=== PATIENT | male | born 1945 | race Caucasian/White ===

== ENCOUNTER 2017-12-11 11:55 | Outpatient (CLI) | payer MEDICARE, OTHER ==
[2017-12-11] MEDS ORDERED: ISOVUE-370 76%-LOCM 1 ML ONE (13:28)
== END 2017-12-11 11:56 | disposition home or self-care (01) ==
LOC: BICCT 11:55
PROVIDERS: ATTEND Student in an Organized Health Care Education/Training Program
DX: R42 Dizziness and giddiness (principal); H53.9 Unspecified visual disturbance; I65.1 Occlusion and stenosis of basilar artery; I66.9 Occlusion and stenosis of unspecified cerebral artery
CPT/HCPCS: 70496; 70498

== ENCOUNTER 2022-01-08 19:43 | Inpatient (IN) | payer MEDICARE, OTHER ==
[2022-01-08] MEDS ORDERED: Furosemide 40 MG/4 ML VIAL ONE (19:58)
[2022-01-08] MEDS ORDERED: Nitroglycerin 2% Ointment 1 INCH/1 GM Packet ONE (19:58)
[2022-01-08 20:12] LABS: #Basophils 0.1 thou/uL (0.0-0.2); #Lymphocytes 1.1 thou/uL (1.20-3.40); #Monocytes 0.6 thou/uL (0.11-0.59); #Neutrophils 6.6 thou/uL (1.40-6.50); %Basophils 0.7 % (0.0-1.0); %Eosinophils 0.3 % (0.0-10.0); %Lymphocytes 12.7 % (21.0-51.0); %Neutrophils 79.2 % (42.0-75.0); Hemoglobin 14.6 g/dL (14.0-18.0); Mean Corpuscular HGB CONC 33.9 g/dL (32.0-36.0); Mean Corpuscular Hemoglobin 31.4 pg (27.0-31.0); Mean Corpuscular Volume 92.5 fL (78.0-98.0); Mean Platelet Volume 7.1 fL (7.4-10.4); Platelet Count 306 thou/uL (130-400); Red Blood Cell (RBC) Count 4.66 mill/uL (4.70-6.10); White Blood Cell (WBC) Count 8.4 thou/uL (4.8-10.8)
[2022-01-08 20:31] LABS: Chloride 105 mmol/L (98-107); Potassium 3.1 mmol/L (3.5-5.1); Sodium 143 mmol/L (136-145)
[2022-01-08 20:50] LABS: CKMB 3.1 ng/mL (0-6.6)
[2022-01-08 21:06] LABS: AST (SGOT) 21 U/L (5-34); Bilirubin, Total 0.6 mg/dL (0.2-1.2); Calcium 8.7 mg/dL (7.8-10.44)
[2022-01-08 21:17] LABS: Anion Gap 16 mmol/L (10-20); Carbon Dioxide 25 mmol/L (23-31)
[2022-01-08 21:20] LABS: Bacteria/HPF None Seen HPF (None Seen); Bilirubin Negative (Negative); Blood, Urine Negative (Negative); Clarity Clear (Clear); Glucose, Urine (Dipstick) Normal (Negative); Ketone, Urine Negative (Negative); Leukocyte Negative Leu/uL (Negative); Nitrite Negative (Negative); Protein, Urine (Dipstick) 100 mg/dL (Neg-Trace); RBC/HPF 0-3 HPF (0-3); Specific Gravity, Urine 1.011 (1.002-1.036); Sperm/HPF 3+ HPF (None Seen); Squamous Epithelial None Seen HPF (0-3); Urobilinogen Normal mg/dL (Less than 2); WBC/HPF 0-3 HPF (0-3)
[2022-01-08 21:28] LABS: Albumin 3.8 g/dL (3.4-4.8)
[2022-01-08 21:31] LABS: Globulin 2.3 g/dL (2.4-3.5); Glucose 133 mg/dL (83-110); Protein, Total 6.1 g/dL (5.8-8.1)
[2022-01-08 21:34] LABS: Alkaline Phosphatase 53 U/L (40-110); Calc. Creatinine Clearance 0 mL/min (70-130)
[2022-01-08 21:35] LABS: BUN (Urea Nitrogen) 24 mg/dL (8.4-25.7)
[2022-01-08 21:37] LABS: ALT (SGPT) 21 U/L (8-55)
[2022-01-08] MEDS ORDERED: Potassium Chloride 20 MEQ TAB ONE (21:47)
[2022-01-08] MEDS ORDERED: Aspirin 325 MG TAB ONE (21:47)
[2022-01-08 23:56] VITALS: BMI 39.5
[2022-01-09 00:20] LABS: Troponin I 0.082 ng/mL (< 0.028)
[2022-01-09] MEDS ORDERED: Dextrose 5% in Water 1,000 ML IV PRN (00:39)
[2022-01-09] MEDS ORDERED: Acetaminophen 650 MG Suppository PR PRN (00:39)
[2022-01-09] MEDS ORDERED: Ondansetron PF 4 MG/2 ML Vial IVP PRN (00:39)
[2022-01-09] MEDS ORDERED: Ondansetron ODT 4 MG TAB PO PRN (00:39)
[2022-01-09] MEDS ORDERED: Acetaminophen 325 MG TAB PO PRN (00:39)
[2022-01-09] MEDS ORDERED: Dextrose 50% Abboject 50 ML SYRINGE SLOW IVP PRN (00:39)
[2022-01-09] MEDS ORDERED: HumaLOG 300 UNITS/3 ML VIAL SC PRN (00:39)
[2022-01-09] MEDS ORDERED: Amlodipine 10 MG TAB PO SCH (01:30)
[2022-01-09 02:41] LABS: Troponin I 0.058 ng/mL (< 0.028)
[2022-01-09 04:35] LABS: #Eosinphils 0.1 thou/uL (0.0-0.7); #Lymphocytes 1.5 thou/uL (1.20-3.40); #Monocytes 0.8 thou/uL (0.11-0.59); %Basophils 0.7 % (0.0-1.0); %Eosinophils 1.6 % (0.0-10.0); %Lymphocytes 20.1 % (21.0-51.0); %Monocytes 11.1 % (0.0-10.0); %Neutrophils 66.5 % (42.0-75.0); Hemoglobin 14.6 g/dL (14.0-18.0); Mean Corpuscular HGB CONC 35.1 g/dL (32.0-36.0); Mean Corpuscular Hemoglobin 32.9 pg (27.0-31.0); Mean Corpuscular Volume 93.8 fL (78.0-98.0); Mean Platelet Volume 7.4 fL (7.4-10.4); Platelet Count 272 thou/uL (130-400); RBC Distribution Width 12.1 % (11.5-14.5); Red Blood Cell (RBC) Count 4.45 mill/uL (4.70-6.10); White Blood Cell (WBC) Count 7.6 thou/uL (4.8-10.8)
[2022-01-09 05:11] LABS: Anion Gap 10 mmol/L (10-20); BUN (Urea Nitrogen) 26 mg/dL (8.4-25.7); Calc. Creatinine Clearance 66 mL/min (70-130); Calcium 8.7 mg/dL (7.8-10.44); Carbon Dioxide 31 mmol/L (23-31); Chloride 104 mmol/L (98-107); Glucose 203 mg/dL (83-110); Potassium 3.1 mmol/L (3.5-5.1); Sodium 142 mmol/L (136-145)
[2022-01-09] MEDS: hydrALAZINE 20 MG/ML VIAL SLOW IVP PRN ×3 (06:07→21:15)
[2022-01-09] MEDS: Potassium Chloride 20 MEQ TAB PO SCH ×2 (07:45→09:13)
[2022-01-09] MEDS ORDERED: Furosemide 40 MG/4 ML VIAL SLOW IVP SCH ×2 (09:00)
[2022-01-09] MEDS: Enoxaparin Sodium 40 MG/0.4 ML SYRINGE SC SCH (09:12)
[2022-01-09] MEDS: Aspirin 81 mg Enteric Coated Tablet PO SCH (09:12)
[2022-01-09 13:44] LABS: SARS-CoV-2 PCR by NAA Not Detected (NotDetected)
[2022-01-09] MEDS ORDERED: hydrALAZINE 10 MG TAB PO SCH (15:00)
[2022-01-09] MEDS: hydrALAZINE 25 MG TAB PO SCH (21:10)
[2022-01-09] MEDS: Zolpidem Tartrate 5 MG TAB PO SCH (21:10)
[2022-01-09] MEDS: Rosuvastatin 20 MG TAB PO SCH (21:10)
[2022-01-10] MEDS: hydrALAZINE 20 MG/ML VIAL SLOW IVP PRN ×2 (01:13→06:31)
[2022-01-10] MEDS ORDERED: cloNIDine 0.1 MG TAB PO SCH (02:00)
[2022-01-10] MEDS: Furosemide 40 MG/4 ML VIAL SLOW IVP SCH ×2 (06:25→11:41)
[2022-01-10 06:57] LABS: #Basophils 0.1 thou/uL (0.0-0.2); #Eosinphils 0.1 thou/uL (0.0-0.7); #Lymphocytes 1.3 thou/uL (1.20-3.40); #Monocytes 0.7 thou/uL (0.11-0.59); #Neutrophils 6.4 thou/uL (1.40-6.50); %Basophils 0.7 % (0.0-1.0); %Eosinophils 1.5 % (0.0-10.0); %Lymphocytes 14.7 % (21.0-51.0); %Monocytes 8.6 % (0.0-10.0); %Neutrophils 74.4 % (42.0-75.0); Hemoglobin 14.3 g/dL (14.0-18.0); Mean Corpuscular HGB CONC 32.8 g/dL (32.0-36.0); Mean Corpuscular Hemoglobin 30.6 pg (27.0-31.0); Mean Corpuscular Volume 93.3 fL (78.0-98.0); Mean Platelet Volume 7.3 fL (7.4-10.4); Platelet Count 281 thou/uL (130-400); Red Blood Cell (RBC) Count 4.69 mill/uL (4.70-6.10); White Blood Cell (WBC) Count 8.6 thou/uL (4.8-10.8)
[2022-01-10 07:17] LABS: Anion Gap 12 mmol/L (10-20); BUN (Urea Nitrogen) 17 mg/dL (8.4-25.7); Calc. Creatinine Clearance 81 mL/min (70-130); Calcium 8.7 mg/dL (7.8-10.44); Carbon Dioxide 28 mmol/L (23-31); Chloride 105 mmol/L (98-107); Glucose 139 mg/dL (83-110); Magnesium 1.8 mg/dL (1.6-2.6); Potassium 3.5 mmol/L (3.5-5.1); Sodium 141 mmol/L (136-145)
[2022-01-10] MEDS ORDERED: Spironolactone 25 MG TAB PO SCH ×2 (08:00→13:00)
[2022-01-10] MEDS: hydrALAZINE 25 MG TAB PO SCH ×3 (09:40→20:26)
[2022-01-10] MEDS: Lisinopril 20 MG TAB PO SCH (09:41)
[2022-01-10] MEDS: Empagliflozin 10 MG TAB PO SCH (09:41)
[2022-01-10] MEDS: Amlodipine 10 MG TAB PO SCH (09:41)
[2022-01-10] MEDS: Aspirin 81 mg Enteric Coated Tablet PO SCH (09:41)
[2022-01-10] MEDS: Enoxaparin Sodium 40 MG/0.4 ML SYRINGE SC SCH (09:42)
[2022-01-10] MEDS: Minoxidil 10 MG TAB PO SCH (09:42)
[2022-01-10] MEDS: Lantus 1000 UNITS/10 ML VIAL SC SCH (15:22)
[2022-01-10] MEDS: Rosuvastatin 20 MG TAB PO SCH (20:27)
[2022-01-10] MEDS: Zolpidem Tartrate 5 MG TAB PO SCH (20:27)
[2022-01-11] MEDS: hydrALAZINE 20 MG/ML VIAL SLOW IVP PRN (03:53)
[2022-01-11 04:48] LABS: Anion Gap 15 mmol/L (10-20); BUN (Urea Nitrogen) 21 mg/dL (8.4-25.7); Calc. Creatinine Clearance 65 mL/min (70-130); Calcium 9.2 mg/dL (7.8-10.44); Carbon Dioxide 29 mmol/L (23-31); Chloride 102 mmol/L (98-107); Sodium 143 mmol/L (136-145)
[2022-01-11 05:00] LABS: Glucose 56 mg/dL (83-110); Potassium 2.9 mmol/L (3.5-5.1)
[2022-01-11] MEDS ORDERED: Electrolyte Replacement Protocol 1 EACH FS PRN (05:55)
[2022-01-11] MEDS ORDERED: Magnesium 2 GM/50 ML 2 GM in Premix Bag 1 BAG IVPB SCH (06:00)
[2022-01-11] MEDS: Furosemide 40 MG/4 ML VIAL SLOW IVP SCH (06:37)
[2022-01-11] MEDS: Potassium Chloride 20 MEQ TAB PO SCH ×2 (06:37→12:55)
[2022-01-11] MEDS ORDERED: Spironolactone 25 MG TAB PO SCH (08:00)
[2022-01-11] MEDS: Enoxaparin Sodium 40 MG/0.4 ML SYRINGE SC SCH (09:48)
[2022-01-11] MEDS: hydrALAZINE 25 MG TAB PO SCH ×3 (09:49→22:44)
[2022-01-11] MEDS: Empagliflozin 10 MG TAB PO SCH (09:49)
[2022-01-11] MEDS: Minoxidil 10 MG TAB PO SCH (09:49)
[2022-01-11] MEDS: Lisinopril 20 MG TAB PO SCH (09:51)
[2022-01-11] MEDS: Amlodipine 10 MG TAB PO SCH (09:51)
[2022-01-11] MEDS: Aspirin 81 mg Enteric Coated Tablet PO SCH (09:52)
[2022-01-11] MEDS: Lantus 1000 UNITS/10 ML VIAL SC SCH ×2 (09:52→23:03)
[2022-01-11] MEDS: Spironolactone 25 MG TAB PO SCH (09:52)
[2022-01-11 20:40] LABS: Albumin 3.8 g/dL (3.4-4.8); Anion Gap 14 mmol/L (10-20); BUN (Urea Nitrogen) 23 mg/dL (8.4-25.7); BUN/Creatinine Ratio 12.92; Calc. Creatinine Clearance 54 mL/min (70-130); Carbon Dioxide 27 mmol/L (23-31); Chloride 102 mmol/L (98-107); Glucose 217 mg/dL (83-110); Phosphorus 2.7 mg/dL (2.3-4.7); Sodium 139 mmol/L (136-145)
[2022-01-11] MEDS: Zolpidem Tartrate 5 MG TAB PO SCH (22:44)
[2022-01-11] MEDS: Rosuvastatin 20 MG TAB PO SCH (22:45)
[2022-01-11] MEDS: HumaLOG 300 UNITS/3 ML VIAL SC PRN (23:17)
[2022-01-12] MEDS: hydrALAZINE 25 MG TAB PO SCH ×3 (06:01→21:24)
[2022-01-12] MEDS: Spironolactone 25 MG TAB PO SCH (08:13)
[2022-01-12] MEDS ORDERED: Furosemide 40 MG/4 ML VIAL SLOW IVP SCH (09:00)
[2022-01-12] MEDS: Lisinopril 20 MG TAB PO SCH (09:35)
[2022-01-12] MEDS: Aspirin 81 mg Enteric Coated Tablet PO SCH (09:35)
[2022-01-12] MEDS: Empagliflozin 10 MG TAB PO SCH (09:35)
[2022-01-12] MEDS: Enoxaparin Sodium 40 MG/0.4 ML SYRINGE SC SCH (09:36)
[2022-01-12] MEDS: NIFEdipine XL 60 MG TAB PO SCH ×2 (09:36→21:23)
[2022-01-12 10:26] LABS: Anion Gap 12 mmol/L (10-20); BUN (Urea Nitrogen) 17 mg/dL (8.4-25.7); Calc. Creatinine Clearance 63 mL/min (70-130); Calcium 8.8 mg/dL (7.8-10.44); Carbon Dioxide 28 mmol/L (23-31); Chloride 103 mmol/L (98-107); Glucose 198 mg/dL (83-110); Potassium 3.8 mmol/L (3.5-5.1); Sodium 139 mmol/L (136-145)
[2022-01-12 14:47] LABS: Creatinine, Urine 78.57 mg/dL (63-166)
[2022-01-12] MEDS: Carvedilol 3.125 MG TAB PO SCH (17:31)
[2022-01-12] MEDS: HumaLOG 300 UNITS/3 ML VIAL SC PRN (18:29)
[2022-01-12] MEDS: Rosuvastatin 20 MG TAB PO SCH (21:23)
[2022-01-12] MEDS: Zolpidem Tartrate 5 MG TAB PO SCH (21:24)
[2022-01-13 04:08] LABS: Anion Gap 12 mmol/L (10-20); BUN (Urea Nitrogen) 20 mg/dL (8.4-25.7); Calc. Creatinine Clearance 66 mL/min (70-130); Calcium 8.7 mg/dL (7.8-10.44); Carbon Dioxide 25 mmol/L (23-31); Chloride 105 mmol/L (98-107); Glucose 147 mg/dL (83-110); Sodium 138 mmol/L (136-145)
[2022-01-13] MEDS: hydrALAZINE 25 MG TAB PO SCH (06:12)
[2022-01-13] MEDS: Lisinopril 20 MG TAB PO SCH (08:13)
[2022-01-13] MEDS: Empagliflozin 10 MG TAB PO SCH (08:13)
[2022-01-13] MEDS: Carvedilol 3.125 MG TAB PO SCH (08:13)
[2022-01-13] MEDS: Enoxaparin Sodium 40 MG/0.4 ML SYRINGE SC SCH (08:13)
[2022-01-13] MEDS: Aspirin 81 mg Enteric Coated Tablet PO SCH (08:13)
[2022-01-13] MEDS: Lantus 1000 UNITS/10 ML VIAL SC SCH (08:14)
[2022-01-13 08:19] VITALS: TEMP 97.7
[2022-01-13] MEDS: NIFEdipine XL 60 MG TAB PO SCH (08:25)
[2022-01-13 12:17] VITALS: BP 171/77
== END 2022-01-13 12:12 | disposition home or self-care (01) | DRG 291 ==
LOC: ERS 19:43 → 2NO 22:24
PROVIDERS: ADMIT Student in an Organized Health Care Education/Training Program; ATTEND Family Medicine
DX: I11.0 Hypertensive heart disease with heart failure (principal); J96.01 Acute respiratory failure with hypoxia; I50.33 Acute on chronic diastolic (congestive) heart failure; N17.9 Acute kidney failure, unspecified; E66.2 Morbid (severe) obesity with alveolar hypoventilation; Z20.822 Contact with and (suspected) exposure to COVID-19; Z23 Encounter for immunization; J45.909 Unspecified asthma, uncomplicated; E87.6 Hypokalemia; R00.1 Bradycardia, unspecified; I25.10 Atherosclerotic heart disease of native coronary artery without angina pectoris; T50.2X5A Adverse effect of carbonic-anhydrase inhibitors, benzothiadiazides and other diuretics, initial encounter; E11.21 Type 2 diabetes mellitus with diabetic nephropathy; I15.9 Secondary hypertension, unspecified; Z98.42 Cataract extraction status, left eye; Z98.41 Cataract extraction status, right eye; Z95.1 Presence of aortocoronary bypass graft; Z98.890 Other specified postprocedural states; Z88.0 Allergy status to penicillin; Z79.4 Long term (current) use of insulin; Z79.82 Long term (current) use of aspirin; Z79.899 Other long term (current) drug therapy; Z68.39 Body mass index [BMI] 39.0-39.9, adult; Z99.89 Dependence on other enabling machines and devices
CPT/HCPCS: 36415; 36416; 71045; 71046; 71260; 76770; 80048; 80053; 81003; 81015; 82088; 82553; 82570; 83735; 83880; 84156; 84244; 84300; 84443; 84484; 84540; 85025; 93005; 93306; 93976; 94660; 94760; 96374; J0360; J1650; J1815; J1940; J3475; U0003; U0005